=== PATIENT | male | born 1985 | race African-American/Black ===

== ENCOUNTER 2019-04-18 17:02 | Emergency (ER) | payer OTHER ==
[~2019-04-18] VITALS: Ht 177.8 cm; Wt 65.8 kg
--- NOTE | 2019-04-19 15:32 | EKG ---
[facility] [address] [facility] [place] [address] Signed Normal sinus rhythm with sinus arrhythmia Normal ECG No previous ECGs available Confirmed by HEBER LYMAN MD ([id number] on 04/19/2019 3:32:10 PM Electronically Signed By: HEBER LYMAN MD 04/19/19 1532 PATIENT NAME: LAYLA WILSON Electrocardiogram DATE OF : 81 PHYSICIAN: HEBER LYMAN MD REPORT #: [id number] REPORT IS CONFIDENTIAL AND NOT TO BE RELEASED WITHOUT AUTHORIZATION
== END 2019-04-18 18:55 | disposition home or self-care (01) ==
LOC: ED 17:02
DX: R07.89 Other chest pain (principal); F17.200 Nicotine dependence, unspecified, uncomplicated
CPT/HCPCS: 71046; 93005; 93010; 96372; 99285-25; J1885